=== PATIENT | female | born 1935 | race Caucasian/White ===

== ENCOUNTER 2021-12-04 11:05 | Emergency (ER) | payer MEDICARE, OTHER ==
[~2021-12-04] VITALS: Ht 157.5 cm; Wt 52.2 kg
[2021-12-04] MEDS ORDERED: FURO20TA4 PO (11:14)
[2021-12-04] MEDS ORDERED: IRBE300T19 PO (11:14)
[2021-12-04] MEDS ORDERED: [UNRECOGNIZED DRUG - CODE] PO (11:14)
[2021-12-04 11:34] VITALS: BP 181/89
--- NOTE | 2021-12-04 11:34 | NUR ---
BIBFAMILY C/O BURNING SENSATION WHEN PEEING X1WK AND FREQUENT URINATION
--- NOTE | 2021-12-04 11:45 | NUR ---
URINE COLLECTED AND SENT TO LAB
[2021-12-04 11:54] LABS: BILIRUBIN,URINE NEGATIVE (NEGATIVE); COLOR,URINE YELLOW (YELLOW); LEUKOCYTE ESTERASE ,URINE NEGATIVE (NEGATIVE); NITRITE, URINE NEGATIVE (NEGATIVE); PROTEIN,URINE NEGATIVE (NEGATIVE); UGLUCOSE NEGATIVE (NEGATIVE); UROBILINOGEN,URINE 0.2 EU/dL (0.2)
[2021-12-04] MEDS ORDERED: NITR100C6 PO (13:11)
--- NOTE | 2021-12-04 13:21 | NUR ---
Patient discharged to home in stable condition. Written and verbal after care instructions given. Patient verbalizes understanding of instruction.
[2021-12-04 13:24] LABS: BACTERIA,URINE Rare /HPF (None Seen); RBC,URINE 0-3 /HPF (0-2); SQUAMOUS EPITHELIAL CELL,UR Few /HPF (None Seen); WBC,URINE 0-2 /HPF (0-3)
== END 2021-12-04 13:22 | disposition home or self-care (01) ==
LOC: ER 11:08
DX: N39.0 Urinary tract infection, site not specified (principal); Z79.899 Other long term (current) drug therapy
CPT/HCPCS: 81001; 84703-TC; 87086-TC

== ENCOUNTER 2022-01-23 14:44 | Inpatient (IN) | payer MEDICARE, OTHER ==
[~2022-01-23] VITALS: Ht 157.5 cm; Wt 45.4 kg
[~2022-01-23 14:44] MED LIST: FURO20TA4 PO; IRBE300T19 PO; NITR100C6 PO; [UNRECOGNIZED DRUG - CODE] PO
--- NOTE | 2022-01-23 14:56 | NUR ---
DR. JEAN-BAPTISTE AT BEDSIDE FOR EVAL
[2022-01-23] MEDS ORDERED: IV NS 0.9% 1,000 ML BAG IV ONE (15:30)
--- NOTE | 2022-01-23 15:33 | NUR ---
IV LINE ESTABLISHED ON RAC #20, BLOOD DRAWN AND SENT TO LAB
[2022-01-23 15:44] LABS: BASOPHILS % (AUTO) 0.1 % (0.0-2.0); EOSINOPHILS % (AUTO) 0.1 % (0.0-6.0); HEMATOCRIT 40 % (33-45); HEMOGLOBIN 12.9 g/dL (11.5-14.8); LYMPHOCYTES # (AUTO) 1.6 K/uL (0.8-4.8); MEAN CORPUSCULAR HGB CONC 33 g/dl (31.0-36.0); MEAN CORPUSCULAR VOLUME 100 fL (82-100); MONOCYTES # (AUTO) 1.1 K/uL (0.1-1.30); MONOCYTES % (AUTO) 4.3 % (2.0-12.0); NEUTROPHILS # (AUTO) 23.3 K/uL (1.8-8.9); NEUTROPHILS % (AUTO) 89.5 % (43.0-81.0); PLATELET COUNT (AUTO) 241 K/uL (150-450); RED BLOOD CELL COUNT(AUTO) 3.97 MIL/uL (4.0-5.2)
[2022-01-23 16:12] LABS: CALCIUM, SERUM 10.2 mg/dL (8.5-10.1); CARBON DIOXIDE 18 mmol/L (21-32); CHLORIDE 98 mmol/L (98-107); CREATININE 1.1 mg/dL (0.6-1.3); GLUCOSE 106 mg/dL (74-106); POTASSIUM 3.3 mmol/L (3.5-5.1); SODIUM SERUM 134 mmol/L (136-145); UREA NITROGEN, BLOOD 39 mg/dL (7-18)
[2022-01-23 16:18] LABS: ALANINE AMINOTRANSFERASE 29 U/L (12-78); ALBUMIN 2.7 g/dL (3.4-5.0); ALKALINE PHOSPHATASE 96 U/L (46-116); ASPARTATE AMINOTRANSFERASE 25 U/L (15-37); BILIRUBIN,DIRECT 0.4 mg/dL (0.0-0.2); BILIRUBIN,TOTAL 0.9 mg/dL (0.2-1.0); TOTAL PROTEIN, SERUM 7.9 g/dL (6.4-8.2)
--- NOTE | 2022-01-23 16:46 | NUR ---
DR. JEAN-BAPTISTE MADE AWARE OF PT'S TROPONIN OF 114.
[2022-01-23] MEDS ORDERED: CEFEPIME 1 GM in IV D5W 50 ML IV ONE (17:00)
--- NOTE | 2022-01-23 17:17 | NUR ---
COVID SWAB COLLECTED AND SENT TO LAB
[2022-01-23] MEDS ORDERED: Z GUARD REMEDY 4 OZ OINT TP PRN (18:30)
[2022-01-23] MEDS ORDERED: MAG HYDROX/AL HYDROX/SIMETH 30 ML UDC PO PRN (18:30)
[2022-01-23] MEDS ORDERED: ACETAMINOPHEN 325 MG TABLET PO PRN (18:30)
[2022-01-23] MEDS ORDERED: ONDANSETRON HCL/PF 4 MG/2 ML VIAL IVP PRN (18:30)
[2022-01-23] MEDS ORDERED: MAGNESIUM HYDROXIDE 30 ML UDC PO PRN (18:30)
[2022-01-23] MEDS ORDERED: ZOLPIDEM TARTRATE 5 MG TABLET PO PRN (18:30)
--- NOTE | 2022-01-23 19:16 | NUR ---
URINE SAMPLE COLLECTED AND SENT TO LAB
[2022-01-23 19:40] LABS: BILIRUBIN,URINE SMALL (NEGATIVE); COLOR,URINE DARK YELLOW (YELLOW); LEUKOCYTE ESTERASE ,URINE MODERATE (NEGATIVE); NITRITE, URINE NEGATIVE (NEGATIVE); PH,URINE 6.5 (5.0-8.0); PROTEIN,URINE NEGATIVE (NEGATIVE); UGLUCOSE NEGATIVE (NEGATIVE); UROBILINOGEN,URINE 0.2 EU/dL (0.2)
[2022-01-23 19:51] LABS: BACTERIA,URINE Many /HPF (None Seen); RBC,URINE 0-2 /HPF (0-2); SQUAMOUS EPITHELIAL CELL,UR Few /HPF (None Seen); WBC,URINE 21-50 /HPF (0-3)
--- NOTE | 2022-01-23 19:53 | NUR ---
RECEIVED PT IN ER BED 12. PT RESTING COMFORTABLY IN BED. PT IS ALERT AND ORIENTED. CONNECTED TO MONITOR. DENIES ANY PAIN AT THIS TIME . WILL CONTINUE TO MONITOR
--- NOTE | 2022-01-23 20:08 | NUR ---
FRIEND FREYA JONES
--- NOTE | 2022-01-23 20:52 | NUR ---
PROVIDED FOOD AND DRINK , WILL CONTINUE TO MONITOR
--- NOTE | 2022-01-23 21:55 | NUR ---
ROOM 107
--- NOTE | 2022-01-23 23:15 | NUR ---
RN NOTES RECEIVED ER ADMISSION REPORT FROM PEDRO GOLD. ALL PERTINENT ADMISSION INFO REGARDING PT NOTED. WILL WAIT FOR PT TO BE TRANSFERRED TO UNIT AND ADDRESS NEEDS ACCORDINGLY. FIBER ANALYST MADE AWARE.
--- NOTE | 2022-01-23 23:17 | NUR ---
REPORT GIVEN TO PEDRO LONDONO
--- NOTE | 2022-01-23 23:45 | NUR ---
RN NOTES RECEIVED PT FROM ER VIA BASILIORJANETTE ACCOMPANIED BY 2 ER STAFF AND TRANSFERRED TO BED VIA 2 PERSON ASSIST. PT IS A/OX2; PLEASANTLY CONFUSED ON ROOM AIR WITH O2 SATURATION OF 98% AT THIS TIME. COMPREHENSIVE PHYSICAL ASSESSMENT AND PATIENT CARE DONE. CALL LIGHT WITHIN REACH, SAFETY MEASURES AND ISOLATION PRECAUTION IN PLACE, WILL CONTINUE MONITOR AND ASSESS THROUGHOUT THE SHIFT. WILL CARRY OUT MD ORDERS ACCORDINGLY. INFANT TEACHER MADE AWARE.
[2022-01-24] VITALS: BP 141/79
[2022-01-24] MEDS: IV NS 0.9% 1,000 ML IV PRN ×2 (00:28→16:51)
[2022-01-24] MEDS: ENOXAPARIN SODIUM 30 MG/0.3 ML DISP.SYRIN SQ SCH ×2 (00:28→21:50)
--- NOTE | 2022-01-24 01:35 | NUR ---
RN NOTES RECEIVED TROPONIN LEVEL 131FROM LAB ENDORSED BY ZAINA. NOTIFIED ONCSHARA RICO (TORRI WONG) ACKNOWLEDGED. ORDER GIVEN FOR REPEAT TROPONIN IN 6HOURS. RN ACKNOWLEDGED.
[2022-01-24 04:00] VITALS: BP 132/78
--- NOTE | 2022-01-24 04:00 | NUR ---
RN NOTES PATIENT REMAINED TO BE IN NO SIGNS OF ACUTE RESPIRATORY DISTRESS , SAFE ENVIRONMENT MAINTAINED FOR PT. AM PATIENT CARE RENDERED. WILL CONTINUE TO MONITOR AND REASSESS FOR ANY CHANGES THROUGHOUT THE SHIFT.
--- NOTE | 2022-01-24 06:34 | NUR ---
RN CLOSING NOTE: PATIENT REMAINS IN ROOM IN NO SIGNS OF RESPIRATORY DISTRESS, PATIENT STILL ON ROOM AIR;TOLERATING WELL SATURATING @ >95% SP02. SAFETY MEASURES IMPLEMENTED, BED IN LOWEST POSITION, LOCKED, SIDE RAILS UP, CALL LIGHT WITHIN REACH. ALL NEEDS AND ORDERS ADDRESSED DURING THE SHIFT. IV ACCESS MAINTAINED INTACT, SECURED AND FLUSHING WELL. IV FLUID RUNNING PER ORDER. ALL DUE MEDS GIVEN ORDERED & SCHEDULED ; PATIENT TOLERATED WELL. PATIENT KEPT CLEAN AND COMFORTABLE WITHIN THE SHIFT. PATIENT ENDORSED TO INCOMING SHIFT RN WITH STABLE VITAL SIGN AND FOR CONTINUITY OF CARE.
--- NOTE | 2022-01-24 07:20 | NUR ---
RN OPENING NOTES RECEIVED PATIENT IN BED, AWAKE, ALERT/ORIENTED X 2 WITH PERIODS OF CONFUSION. PATIENT ON ROOM AIR, TOLERATING WELL. ON TELE MONITOR READING NSR WITH HR OF 80 AT THE TIME. NOTED IV ACCESS ON RIGHT AC #20G, PATENT AND INTACT, INFUSING NS AT 75ML/HR. NO SIGNS OF INFILTRATION AT THE TIME. SAFETY MEASURES IMPLEMENTED, BED IN LOWEST POSITION, LOCKED, SIDE RAILS UP, CALL LIGHT WITHIN REACH. WILL CONTINUE TO MONITOR AND REASSESS PATIENT FOR ANY CHANGES DURING SHIFT.
[2022-01-24 07:57] LABS: ALBUMIN 1.9 g/dL (3.4-5.0); BILIRUBIN,TOTAL 0.6 mg/dL (0.2-1.0); CALCIUM, SERUM 8.6 mg/dL (8.5-10.1); MAGNESIUM 1.7 mg/dL (1.8-2.4); TOTAL PROTEIN, SERUM 5.9 g/dL (6.4-8.2)
[2022-01-24 08:00] VITALS: BP 139/74
[2022-01-24 08:30] LABS: POTASSIUM 2.7 mmol/L (3.5-5.1)
[2022-01-24] MEDS: ASPIRIN EC 81 MG TABLET.DR PO SCH (08:36)
[2022-01-24] MEDS: CEFTRIAXONE 1 G in IV D5W 50 ML IV SCH (08:36)
[2022-01-24] MEDS ORDERED: PANTOPRAZOLE 40 MG VIAL IV SCH (09:00)
[2022-01-24 09:08] LABS: THYROID STIMULATING HORMONE 1.5 uIU/mL (0.358-3.74)
--- NOTE | 2022-01-24 10:06 | NUR ---
potassium level was 2.7 wbc 26 notified to SCOURING TRAIN OPERATOR waiting for returning call back
--- NOTE | 2022-01-24 10:11 | NUR ---
orders obtained and will carried out orders
[2022-01-24] MEDS: POTASSIUM CHLORIDE 20 MEQ TAB.PRT.SR PO SCH ×2 (10:28→12:36)
[2022-01-24] MEDS: Magnesium 1GM/D5W 100ML PREMIX PIGGYBACK IV SCH ×2 (10:28→11:40)
[2022-01-24 10:59] LABS: BASOPHILS % (AUTO) 0.1 % (0.0-2.0); EOSINOPHILS % (AUTO) 0.5 % (0.0-6.0); HEMATOCRIT 38 % (33-45); HEMOGLOBIN 11.7 g/dL (11.5-14.8); LYMPHOCYTES # (AUTO) 1.6 K/uL (0.8-4.8); LYMPHOCYTES % (AUTO) 8.4 % (20.0-44.0); MEAN CORPUSCULAR HGB CONC 31 g/dl (31.0-36.0); MEAN CORPUSCULAR VOLUME 104 fL (82-100); MONOCYTES # (AUTO) 1.1 K/uL (0.1-1.30); MONOCYTES % (AUTO) 5.8 % (2.0-12.0); NEUTROPHILS # (AUTO) 16.3 K/uL (1.8-8.9); NEUTROPHILS % (AUTO) 85.2 % (43.0-81.0); PLATELET COUNT (AUTO) 180 K/uL (150-450); RED BLOOD CELL COUNT(AUTO) 3.61 MIL/uL (4.0-5.2); WHITE BLOOD COUNT (AUTO) 19.1 K/uL (4.3-11.0)
[2022-01-24 12:00] VITALS: BP 124/71
[2022-01-24 16:00] VITALS: BP 124/53
--- NOTE | 2022-01-24 18:54 | NUR ---
RN CLOSING NOTES NO SIGNIFICANT CHANGES ON PATIENT CONDITION THROUGHOUT SHIFT. PATIENT IN BED, AWAKE, ALERT/ORIENTED X 2 WITH PERIODS OF CONFUSION. PATIENT ON ROOM AIR, TOLERATING WELL. NOTED IV ACCESS ON RIGHT AC #20G, PATENT AND INTACT, INFUSING NS AT 75ML/HR. NO SIGNS OF INFILTRATION AT THE TIME. ALL DUE MEDS GIVEN ORDERED. KEPT PATIENT CLEAN DRY AND COMFORTABLE. WOUND CARE RENDERED TOLERATED. ALL NEEDS ANTICIPATED. SAFETY MEASURES IMPLEMENTED, BED IN LOWEST POSITION, LOCKED, SIDE RAILS UP, CALL LIGHT WITHIN REACH. WILL ENDORSE TO ARRANGING FUNERAL DIRECTOR NURSE FOR CONTINUITY OF CARE.
[2022-01-24 20:00] VITALS: BP 141/62
[2022-01-25] VITALS: BP 137/47
[2022-01-25 04:00] VITALS: BP 137/65
--- NOTE | 2022-01-25 05:00 | NUR ---
RN NOTE PATIENT PULLED OUT IV ACCESS IN THE RAC. ATTEMPT MADE AND UNSUCCESSFUL, ED FROM ICU CAME AND TRIED ALSO UNSUCCESSFUL. MIDLINE ORDERED, AND NURSE DIELECTRIC PRESS OPERATOR DOMINICK NOTIFIED.
[2022-01-25 06:45] LABS: BASOPHILS % (AUTO) 0.3 % (0.0-2.0); EOSINOPHILS % (AUTO) 0.3 % (0.0-6.0); HEMATOCRIT 37 % (33-45); LYMPHOCYTES # (AUTO) 1.1 K/uL (0.8-4.8); LYMPHOCYTES % (AUTO) 7.8 % (20.0-44.0); MEAN CORPUSCULAR HGB CONC 33 g/dl (31.0-36.0); MEAN CORPUSCULAR VOLUME 102 fL (82-100); MONOCYTES # (AUTO) 0.7 K/uL (0.1-1.30); NEUTROPHILS # (AUTO) 11.9 K/uL (1.8-8.9); NEUTROPHILS % (AUTO) 86.6 % (43.0-81.0); PLATELET COUNT (AUTO) 187 K/uL (150-450); RED BLOOD CELL COUNT(AUTO) 3.61 MIL/uL (4.0-5.2); WHITE BLOOD COUNT (AUTO) 13.7 K/uL (4.3-11.0)
[2022-01-25 06:48] LABS: CARBON DIOXIDE 15 mmol/L (21-32); CHLORIDE 107 mmol/L (98-107); CREATININE 1.1 mg/dL (0.6-1.3); GLUCOSE 109 mg/dL (74-106); MAGNESIUM 2.4 mg/dL (1.8-2.4); POTASSIUM 4.1 mmol/L (3.5-5.1); SODIUM SERUM 135 mmol/L (136-145); UREA NITROGEN, BLOOD 30 mg/dL (7-18)
--- NOTE | 2022-01-25 06:48 | NUR ---
RN CLOSING NOTE PATIENT IS IN STABLE CONDITION DURING SHIFT, NO DISTRESS OR DISCOMFORT NOTED. ALL NEEDS ATTENDED, KEPT PATIENT CLEAN AND DRY, SIDE RAILS X2, CALL LIGHT WITHIN REACH, WILL ENDORSE TO DAYSHIFT NURSE.
--- NOTE | 2022-01-25 07:15 | NUR ---
PROFESSOR OF LITERATURE OPENING NOTES: RECEIVED PATIENT IN BED, AWAKE, ALERT X 2. PATIENT IS ON RA, TOLERATING WELL. RESPIRATION UNLABORED AND NO S/S OF RESPIRATORY DISTRESS. PATIENT CURRENTLY HAS NO IV ACCESS REPORTED BY SHEEP FARM MANAGER NURSE. MULTIPLE ATTEMPTS MADE FOR IV REINSERTION BUT WAS NOT SUCCESSFUL. PATIENT WILL BE HAVING MIDLINE INSERTION. HOB ELEVATED, SIDERAILS UP, BED LOCKED IN LOWEST POSITION, CALL LIGHT WITHIN REACH. WILL CONTINUE TO MONITOR AND REASSESS PATIENT THROUGHOUT SHIFT
[2022-01-25 08:00] VITALS: BP 151/76
[2022-01-25] MEDS: ASPIRIN EC 81 MG TABLET.DR PO SCH (08:38)
[2022-01-25 12:00] VITALS: BP 148/79
[2022-01-25] MEDS: CEFTRIAXONE 1 G in IV D5W 50 ML IV SCH (13:09)
[2022-01-25 16:00] VITALS: BP 150/86
[2022-01-25] MEDS ORDERED: K PHOS NEUTRAL 250 MG TABLET PO ONE (16:30)
[2022-01-25] MEDS: IV NS 0.9% 1,000 ML IV PRN (17:58)
--- NOTE | 2022-01-25 18:54 | NUR ---
RN CLOSING NOTES NO SIGNIFICANT CHANGES ON PATIENT CONDITION THROUGHOUT SHIFT. PATIENT IN BED, AWAKE, ALERT/ORIENTED X 2 WITH PERIODS OF CONFUSION. PATIENT ON ROOM AIR, TOLERATING WELL. NOTED IV ACCESS ON KAVON MIDLINE PATENT AND INTACT, INFUSING NS AT 75ML/HR. NO SIGNS OF INFILTRATION AT THE TIME. ALL DUE MEDS GIVEN ORDERED. KEPT PATIENT CLEAN DRY AND COMFORTABLE. WOUND CARE RENDERED TOLERATED. ALL NEEDS ANTICIPATED. SAFETY MEASURES IMPLEMENTED, BED IN LOWEST POSITION, LOCKED, SIDE RAILS UP, CALL LIGHT WITHIN REACH. WILL ENDORSE TO SCOWMAN NURSE FOR CONTINUITY OF CARE.
--- NOTE | 2022-01-25 19:30 | NUR ---
HEALTH PROMOTION COORDINATOR OPENING NOTE RECEIVED PATIENT AWAKE IN BED, A/O X3, ON RA TOLERATING WELL, NO S/S OF RESP DISTRESS, DENIES PAIN AT THIS TIME, TELE MONITOR READING SR HR 87,KAVON MIDLINE #18G RUNNING NS@75ML/HR,NO S/S OF INFILTRATION NOTED, INTACT AND PATENT, KEPT DRY AND CLEAN, SIDE RAILS X2, CALL LIGHT WITHIN REACH, WILL CONTINUE TO MONITOR. VSS
[2022-01-25 20:00] VITALS: BP 141/77
[2022-01-25] MEDS: ENOXAPARIN SODIUM 30 MG/0.3 ML DISP.SYRIN SQ SCH (21:14)
[2022-01-26] VITALS: BP 154/74
[2022-01-26 04:00] VITALS: BP 149/65
--- NOTE | 2022-01-26 06:52 | NUR ---
BASEBALL SCOUT CLOSING NOTE PATIENT IS IN STABLE CONDITION DURING SHIFT, NO DISTRESS OR DISCOMFORT NOTED. SINUS RHYTHM HR 80, PATIENT DENIES ANY PAIN, KAVON #18G MIDLINE, RUNNING NS@75ML/HR, ALL NEEDS ATTENDED, KEPT PATIENT CLEAN AND DRY, SIDE RAILS X2, CALL LIGHT WITHIN REACH, WILL ENDORSE TO DAYSHIFT NURSE.
[2022-01-26 07:07] LABS: *SPE A/G RATIO 0.7 (0.7-1.7); *SPE ALPHA-1-GLOBULIN 0.6 g/dL (0.0-0.4); *SPE ALPHA-2-GLOBULIN 1.1 g/dL (0.4-1.0); *SPE BETA GLOBULIN 1.3 g/dL (0.7-1.3); *SPE M-SPIKE Not Observed g/dL (Not Observed)
[2022-01-26 07:24] LABS: BASOPHILS % (AUTO) 0.1 % (0.0-2.0); EOSINOPHILS % (AUTO) 0.2 % (0.0-6.0); HEMATOCRIT 38 % (33-45); HEMOGLOBIN 12.4 g/dL (11.5-14.8); MEAN CORPUSCULAR HGB CONC 33 g/dl (31.0-36.0); MEAN CORPUSCULAR VOLUME 103 fL (82-100); MONOCYTES # (AUTO) 0.6 K/uL (0.1-1.30); MONOCYTES % (AUTO) 5.6 % (2.0-12.0); NEUTROPHILS # (AUTO) 8.3 K/uL (1.8-8.9); NEUTROPHILS % (AUTO) 84.1 % (43.0-81.0); PLATELET COUNT (AUTO) 161 K/uL (150-450); WHITE BLOOD COUNT (AUTO) 9.9 K/uL (4.3-11.0)
--- NOTE | 2022-01-26 07:30 | NUR ---
RN OPENING NOTE PATIENT IS IN BED AWAKE, ALERT ORIENTED TO PERSON AND PLACE. ON ROOM AIR. DENIES PAIN, BREATHING UNLABORED AND NOT IN ANY FORM OF DISTRESS. SINUS RHYTHM ON COAL GETTER. WITH LEFT UPPER ARM MIDLINE INFUSING WITH NS AT 75 ML.HR, NO SIGNS OF INFILTRATION OR PHLEBITIS NOTED. BED IS LOCKED IN LOWEST POSITION, 3 SIDE RAILS UP, CALL LIGHT WITHIN REACH. WILL CONTINUE TO MONITOR THROUGHOUT SHIFT.
[2022-01-26 08:00] VITALS: BP 153/71
[2022-01-26 08:04] LABS: CALCIUM, SERUM 8.6 mg/dL (8.5-10.1); CARBON DIOXIDE 11 mmol/L (21-32); CHLORIDE 109 mmol/L (98-107); CREATININE 1.1 mg/dL (0.6-1.3); GLUCOSE 104 mg/dL (74-106); MAGNESIUM 2.1 mg/dL (1.8-2.4); PHOSPHORUS 2.8 mg/dL (2.5-4.9); POTASSIUM 3.8 mmol/L (3.5-5.1); SODIUM SERUM 136 mmol/L (136-145); UREA NITROGEN, BLOOD 27 mg/dL (7-18)
[2022-01-26] MEDS: ASPIRIN EC 81 MG TABLET.DR PO SCH (08:20)
[2022-01-26] MEDS: PANTOPRAZOLE 40 MG TABLET.DR PO SCH (08:20)
[2022-01-26] MEDS: CEFTRIAXONE 1 G in IV D5W 50 ML IV SCH (08:30)
[2022-01-26] MEDS: IV NS 0.9% 1,000 ML IV PRN (08:33)
--- NOTE | 2022-01-26 11:47 | NUR ---
RN NOTE PATIENT DOWNGRADED TO MED SURG
[2022-01-26 12:00] VITALS: BP 144/64
[2022-01-26 16:00] VITALS: BP 141/73
--- NOTE | 2022-01-26 18:57 | NUR ---
RN CLOSING NOTE PATIENT REMAINED STABLE THROUGHOUT SHIFT. LEFT UPPER ARM MIDLINE REMAINS INTACT AND PATENT. PATIENT TOLERATES ROOM AIR SATTING AT 95%. BREATHING UNLABORED, DENIES PAIN, AND NOT IN ANY FORM OF DISTRESS. BED IS LOCKED IN LOWEST POSITION, 3 SIDE RAILS UP, CALL LIGHT WITHIN REACH. WILL ENDORSE TO BAR ATTENDANT NURSE.
--- NOTE | 2022-01-26 19:30 | NUR ---
SSRS DEVELOPER OPENING NOTE RECEIVED PATIENT AWAKE IN BED, A/O X3, ON RA TOLERATING WELL, NO S/S OF RESP DISTRESS, DENIES PAIN AT THIS TIME, TELE MONITOR READING SR-ST WITH PVC HR 98-103 ,KAVON MIDLINE #18G RUNNING NS@75ML/HR,NO S/S OF INFILTRATION NOTED, INTACT AND PATENT, KEPT DRY AND CLEAN, SIDE RAILS X2, CALL LIGHT WITHIN REACH, WILL CONTINUE TO MONITOR. VSS
[2022-01-26 20:00] VITALS: BP 141/79
[2022-01-26] MEDS: ENOXAPARIN SODIUM 30 MG/0.3 ML DISP.SYRIN SQ SCH (21:12)
[2022-01-27 04:00] VITALS: BP 156/80
--- NOTE | 2022-01-27 06:30 | NUR ---
RAG SORTER AND CUTTER CLOSING NOTE PATIENT IS IN STABLE CONDITION DURING SHIFT, NO DISTRESS OR DISCOMFORT NOTED. PATIENT DENIES ANY PAIN, KAVON #18G MIDLINE, RUNNING NS@75ML/HR, ALL NEEDS ATTENDED, KEPT PATIENT CLEAN AND DRY, SIDE RAILS X2, CALL LIGHT WITHIN REACH, WILL ENDORSE TO [facility] NURSE. Addendum: 01/27/22 at 0655 by HOLDEN HUNT RN PER ARIS MCCANN HE IS GOING TO FINISH A PATIENT LINEN CHANGE AND THEN GET TO THIS PATIENT
--- NOTE | 2022-01-27 07:30 | NUR ---
RN OPENING NOTE PATIENT IS IN BED ASLEEP BUT EASILY AROUSABLE, ALERT ORIENTED X 2 (PERSON AND PLACE). ON ROOM AIR, WITH O2 SATURATION AT 97%. WITH LEFT UPPER ARM MIDLINE INFUSING WITH NS AT 75 ML/HR. DENIES PAIN, BREATHING UNLABORED AND NOT IN ANY FORM OF DISTRESS. BED IS LOCKED IN LOWEST POSITION, 3 SIDE RAILS UP, CALL LIGHT WITHIN REACH. WILL CONTINUE TO MONITOR THROUGHOUT SHIFT.
[2022-01-27 08:00] VITALS: BP 166/84
[2022-01-27] MEDS: ASPIRIN EC 81 MG TABLET.DR PO SCH (08:11)
[2022-01-27] MEDS: PANTOPRAZOLE 40 MG TABLET.DR PO SCH (08:11)
[2022-01-27] MEDS: CEFTRIAXONE 1 G in IV D5W 50 ML IV SCH (08:12)
[2022-01-27] MEDS: IV NS 0.9% 1,000 ML IV PRN ×2 (08:18→23:05)
[2022-01-27 12:00] VITALS: BP 135/87
[2022-01-27 16:19] VITALS: BP 129/73
--- NOTE | 2022-01-27 18:46 | NUR ---
RN CLOSING NOTE PATIENT IS RESTING COMFORTABLY IN BED AND REMAINED STABLE THROUGHOUT SHIFT. DENIES PAIN, BREATHING UNLABORED AND NOT IN ANY FORM OF DISTRESS. IV LINE INTACT AND PATENT, NO SIGNS OF INFILTRATION NOTED. KEPT COMFORTABLE THROUGHOUT SHIFT AND ALL NEEDS ATTENDED. BED IS LOCKED IN LOWEST POSITION, 3 SIDE RAILS UP, CALL LIGHT WITHIN REACH. WILL ENDORSE TO AIRLINE RESERVATION AGENT NURSE.
[2022-01-27 20:00] VITALS: BP 150/73
[2022-01-27] MEDS: ENOXAPARIN SODIUM 30 MG/0.3 ML DISP.SYRIN SQ SCH (20:55)
[2022-01-28] VITALS: BP 149/71
[2022-01-28 04:00] VITALS: BP 126/86
--- NOTE | 2022-01-28 06:30 | NUR ---
RN CLOSING NOTE A/OX2. ROOM AIR. NO C/O PAIN. IV RUNNING NS@75. PERINEAL REDNESS, ZGUARD APPLIED, INCONTINENCE CARE DONE. VSS.
[2022-01-28] MEDS: PANTOPRAZOLE 40 MG TABLET.DR PO SCH (07:25)
--- NOTE | 2022-01-28 07:38 | NUR ---
RN OPENING NOTE RECIEVED PATIENT REPORT FROM NIGHTSHIFT. PATIENT AWAKE IN BED ALERT AND ORIENTED TIMES 2. ON ROOM AIR WITH OXYGEN SATURATION AT 100%. DIAPER NOTED. GENITAL REDNESS NOTED. LEFT UPPER ARM MIDLINE INTACT, PATENT AND CURRENTLY RUNNING NORMAL SALINE AT 75 MLS/HR. SAFETY MEASURES IN PLACE, BED IN LOWEST POSITION, CALL LIGHT WITHIN REACH, SIDE RAILS UP TIMES 2. WILL CONTINUE PLAN OF CARE AND ANTICIPATE NEEDS.
[2022-01-28 08:00] VITALS: BP 131/82
[2022-01-28] MEDS: ASPIRIN EC 81 MG TABLET.DR PO SCH (09:03)
[2022-01-28] MEDS: CEFTRIAXONE 1 G in IV D5W 50 ML IV SCH (09:04)
[2022-01-28 12:00] VITALS: BP 131/82
[2022-01-28 16:00] VITALS: BP 157/80
--- NOTE | 2022-01-28 16:58 | NUR ---
PATIENT HAS BEEN DISCHARGED TO A [facility] FACILITY. IV ACCESS REMAINS, THE PATIENT WILL RECEIVE IV ANTIBIOTICS AT THE FACILITY. ALL BELONGINGS ACCOUNTED FOR, DISCHARGE FORMS SIGNED. PATIENT WAS RELEASED TO AMBULANCE CREW IN STABLE CONDITION. PATIENT LEFT FACILITY GROUNDS VIA PRIVATE AMBULANCE
== END 2022-01-28 18:00 | DRG 871 ==
LOC: ER 14:46 → TELE1 22:06 → MEDSG1 01-26 22:34
PROVIDERS: ADMIT Nurse Practitioner Acute Care; ATTEND Internal Medicine
PROC: 05HC33Z Insertion of Infusion Device into Left Basilic Vein, Percutaneous Approach (ICD-10-PCS; principal; 2022-01-25)
DX: A41.9 Sepsis, unspecified organism (principal); I21.A1 Myocardial infarction type 2; E87.1 Hypo-osmolality and hyponatremia; N39.0 Urinary tract infection, site not specified; N17.9 Acute kidney failure, unspecified; N82.3 Fistula of vagina to large intestine; E86.0 Dehydration; Z20.822 Contact with and (suspected) exposure to COVID-19; E03.9 Hypothyroidism, unspecified; Z79.899 Other long term (current) drug therapy; Z79.890 Hormone replacement therapy; B96.89 Other specified bacterial agents as the cause of diseases classified elsewhere; E87.6 Hypokalemia; R62.7 Adult failure to thrive; Z87.891 Personal history of nicotine dependence; R19.7 Diarrhea, unspecified; I10 Essential (primary) hypertension
CPT/HCPCS: 36415; 71045-TC; 80048-TC; 80053-TC; 80076-TC; 81001; 82550-TC; 83605-TC; 83735-TC; 84100-TC; 84155; 84165; 84439-TC; 84443-TC; 84484-TC; 85025-TC; 85730-TC; 87040-TC; 87081-TC; 87086-TC; 87186-TC; 93307-TC; 97110-TC; 97112-TC; 97116-TC; 97530-TC; C9113; C9803; G0378; J0692; J0696; J1650; J3475; J3490; J7030; J7040; J7060